=== PATIENT | female | born 1990 | race Two or more races ===

== ENCOUNTER 2020-03-06 18:14 | Emergency (ER) | payer OTHER ==
[~2020-03-06] VITALS: Ht 170.2 cm; Wt 87.0 kg
[2020-03-06 18:18] VITALS: BP 128/67
[2020-03-06] MEDS ORDERED: LIDOCAINE 2%/EPI 1:100,000 20 ML VIAL. ONE (18:23)
[2020-03-06] MEDS ORDERED: LIDOCAINE 2%/EPI 1:100,000 20 ML VIAL. IJ ONE (18:30)
[2020-03-06] MEDS ORDERED: NEOMY/BACITR/POLYMYXIN OINT PACKET. TP ONE (18:30)
--- NOTE | 2020-03-06 18:44 | PHYS DOC ---
Past History Past Medical History: No Pertinent History Past Surgical History: Cholecystectomy, Smoking: Non-smoker Alcohol Use: None Drug Use: None General Adult EDM: Chief Complaint: HAND PROBLEM HPI: HPI: Patient is a 29-year-old female who presents to the emergency department with an injury to her left index finger. She states she jammed it playing basketball, but is unsure what she jammed it on. States that the left index finger was posteriorly displaced at the proximal interphalangeal joint. There is a 3 cm horizontal laceration at the flexural crease of the proximal interphalangeal joint on the palmar side. She denies injury to any other part of her body. Full sensation is intact, left index flexion is limited due to swelling and pain. Patient states that she is up-to-date with her tetanus shot. Review of Systems: Review of Systems: Constitutional: Denies fever or chills Eyes: Denies redness or eye pain HENT: Denies nasal congestion or sore throat Respiratory: Denies cough or shortness of breath Cardiovascular: Denies chest pain or palpitations GI: Denies abdominal pain, nausea, or vomiting : Denies dysuria or hematuria Musculoskeletal: Left index finger swelling and pain Integument: 3 cm laceration to the palmar side of the proximal interphalangeal joint of the left index finger Neurologic: Denies headache, focal weakness or sensory changes Complete systems were reviewed and found to be within normal limits, except as documented in this note. Current Medications: Current Meds: Current Medications Medications (Trade) Dose Ordered Sig/Unruly Start Time Stop Time Status Last Admin Dose Admin Lidocaine/ Epinephrine (Xylocaine 2%-Epi 1:100,000) 20 ml STK-MED ONCE 03/06/20 18:23 03/06/20 18:23 DC Neomycin/ Polymyxin/ Bacitracin (Triple Antibiotic Ointment) 1 pkt 1X ONCE 03/06/20 18:30 03/06/20 18:31 Allergies: Allergies: Allergies Coded Allergies Type Severity Reaction Last Updated Verified No Known Drug Allergies 03/06/20 No Physical Exam: PE: Constitutional: Well developed, well nourished, no acute distress, non-toxic appearance HENT: Normocephalic, atraumatic Eyes: PERRL, EOMI, conjunctiva normal, no discharge Neck: Normal range of motion, no tenderness, supple Lungs & Thorax: No respiratory distress, equal chest rise and fall Abdomen: Soft, no tenderness Skin: 3 cm laceration to the palmar aspect of the proximal interphalangeal joint of the left index finger Back: No tenderness, no CVA tenderness Extremities: Swelling and tenderness to the left index finger, left index flexion limited with pain but evident at the proximal and distal interphalangeal joints, radial pulse 2/4 bilaterally Neurologic: Alert and oriented X 3, normal motor function, normal sensory function, no focal deficits noted Psychologic: Affect normal, judgment normal EKG: EKG: [] Radiology/Procedures: Radiology/Procedures: PROCEDURE: FINGER(S) LEFT Examination: FINGER(S) LEFT History: Reason: left index finger laceration, mid phalanx, hx of deformity / Spl. Instructions: / History: Comparison/Correlation: None Findings: Total of 3 images of the left second digit were obtained. Joint spaces are normal. No fracture or bone destruction. Soft tissue gas and swelling at the volar aspect of the second digit from the proximal interphalangeal joint level to the distal phalangeal joint level is noted. No radiopaque foreign body. No significant degenerative change. Impression: Soft tissue swelling and gas at the volar aspect of the second digit. No fracture. Electronically signed by: Fransisco Kitchen MD (03/06/2020 6:46 PM) [facility] Course & Med Decision Making: Course & Med Decision Making Pertinent Imaging studies reviewed. (See chart for details) 29-year-old female presents the emergency department with injury to her left index finger while playing basketball. Patient states the finger was posteriorly displaced immediately after the incident but then returned to normal before she came to the hospital. On examination there was a 3 cm horizontal laceration to the palmar aspect, just inferior to the flexor crease of the left proximal interphalangeal joint of the index finger. X-ray revealed no acute fractures, but because of the open nature of this wound, patient was started on antibiotic. An aluminum finger splint was then placed. Patient stable for discharge with outpatient follow-up with PCP. Discussed findings and plan with patient, who acknowledges understanding and agreement. Domenica Disclaimer: Domenica Disclaimer: This electronic medical record was generated, in whole or in part, using a voice recognition dictation system. Laceration/Wound Repair Laceration/Wound Repair : Wound Location: upper extremity Wound's Depth, Shape: linear Wound Length (cm): 3 Wound Explored: clean Irrigated w/ Saline (ccs): 200 (left index finger) Anesthesia: Lidocaine w/ Epi Volume Anesthetic (ccs): 5 Wound Debrided: minimal Wound Repaired With: sutures Suture Size/Type: 5:0 Number of Sutures: 6 Layer Closure?: Yes Deep Layer Suture Size/Type: 5:0 Number Deep Layer Sutures: 1 Sterile Dressing Applied?: Yes Splint Applied?: Yes Type of Splint Applied: finger aluminum Progress A digital block was performed from the dorsal aspect in order to properly anesthetize the index finger. During irrigation and further inspection, the flexor digitorum superficialis tendon was visualized. It seems the tendon sheath was obliterated during injury. One horizontal mattress suture with 5-0 Vicryl was placed through the subcutaneous fat to protect the tendon. 6 on interrupted sutures with 5-0 Ethilon was then used to approximate the skin. Departure Departure: Impression: Primary Impression: Finger laceration with complication Qualified Codes: S61.219A - Laceration without foreign body of unspecified finger without damage to nail, initial encounter Disposition: 01 DC HOME SELF CARE/HOMELESS Condition: STABLE Referrals: CIELO KRAMER DO (PCP) Patient Instructions: Laceration Care, Adult, [id number] Additional Instructions: Your tendon sheath appears to have been injured with your hyperextension of your finger causing laceration and probable dislocation of your proximal interphalageal joint. Please take all antibiotic until gone. Wear splint until seen by hand surgeon. Use over the counter Tylenol and/or Ibuprofen for pain or discomfort. Do not soak your wound. You may shower. Clean wound daily with soap and water. Change dressing 2 times daily. Use over the counter antibiotic ointment with each dressing change. Please replace splint after each dressing change. Sutures need to be removed in 10 days. Present to your hand surgeon for removal. After suture removal you may use Vitamin E ointment to soften the wound and prevent scarring. Scripts Cephalexin (KEFLEX) 500 Mg Capsule 1 CAP PO QID for Finger injury for 10 Days, #40 CAP 0 Refills Prov: CON BETTENCOURT DO 03/06/20 CON BETTENCOURT DO Mar 06, 2020 18:44
--- NOTE | 2020-03-06 18:49 | RAD ---
Examination: FINGER(S) LEFT History: Reason: left index finger laceration, mid phalanx, hx of deformity / Spl. Instructions: / History: Comparison/Correlation: None Findings: Total of 3 images of the left second digit were obtained. Joint spaces are normal. No fracture or bone destruction. Soft tissue gas and swelling at the volar aspect of the second digit from the proximal interphalangeal joint level to the distal phalangeal joint level is noted. No radiopaque foreign body. No significant degenerative change. Impression: Soft tissue swelling and gas at the volar aspect of the second digit. No fracture. Electronically signed by: Frnasisco Kitchen MD (03/06/2020 6:46 PM) [facility]
[2020-03-06] MEDS ORDERED: CEPHALEXIN 250 MG CAPSULE PO ONE (19:15)
[2020-03-06] MEDS ORDERED: CEPH-264 PO (19:37)
== END 2020-03-06 19:48 | disposition home or self-care (01) ==
LOC: ER 18:14
DX: S61.211A Laceration without foreign body of left index finger without damage to nail, initial encounter (principal); W23.0XXA Caught, crushed, jammed, or pinched between moving objects, initial encounter; Y93.67 Activity, basketball; Y92.89 Other specified places as the place of occurrence of the external cause; Y99.8 Other external cause status
CPT/HCPCS: 12002; 73140; 99283